=== PATIENT | male | born 1990 | race Caucasian/White ===

== ENCOUNTER 2021-05-17 15:39 | Emergency (ER) | payer OTHER ==
[~2021-05-17] VITALS: Ht 175.3 cm; Wt 59.0 kg
--- NOTE | 2021-05-17 16:21 | NUR ---
BIB [employer] FOR MEDICAL CLEARANCE TO [employer]AILS. C/O NAUSEA, VOMITING, BODY PAIN S/P FENTANYL WITHDRAWAL. LAST FENTANYL USE MONDAY. AWAKE, LETHARGIC, NOT SPEAKING, BUT FOLLOW COMMANDS. ON MONITOR. HR 136. WILL CONTINUE TO MONITOR.
--- NOTE | 2021-05-17 16:29 | NUR ---
URINE COLLECTED AND SENT TO LAB
--- NOTE | 2021-05-17 16:30 | NUR ---
ADDENDUM: IV NS 0.9% 1000ML, RAC 20G, START TIME 1829 END TIME 1929.
[2021-05-17] MEDS ORDERED: CLONIDINE HCL 0.2MG/24H PTWK 1 EA PATCH TD SCH (17:00)
[2021-05-17] MEDS ORDERED: ONDANSETRON HCL/PF 4 MG/2 ML VIAL IVP ONE (18:30)
[2021-05-17] MEDS ORDERED: KETOROLAC TROMETHAMINE INJ 30 MG/ML VIAL IV ONE (18:30)
[2021-05-17] MEDS ORDERED: IV NS 0.9% 1,000 ML BAG IV ONE (18:30)
[2021-05-17] MEDS ORDERED: KETOROLAC TROMETHAMINE INJ 30 MG/ML VIAL ONE (18:54)
[2021-05-17] MEDS ORDERED: ONDANSETRON HCL/PF 4 MG/2 ML VIAL ONE (18:54)
[2021-05-17] MEDS ORDERED: NALO4SPR NS (19:48)
--- NOTE | 2021-05-17 19:59 | NUR ---
Patient discharged to home in stable condition. Written and verbal after care instructions given. Patient verbalizes understanding of instruction.
[2021-05-17 20:00] VITALS: BP 132/70
== END 2021-05-17 20:38 ==
LOC: ER 15:43
DX: Z02.89 Encounter for other administrative examinations (principal); F11.23 Opioid dependence with withdrawal; R11.2 Nausea with vomiting, unspecified; R94.31 Abnormal electrocardiogram [ECG] [EKG]
CPT/HCPCS: 93005; 96361; 96374; 96375; 99284; J1885; J2405; J7030

== ENCOUNTER 2022-01-06 09:36 | Emergency (ER) | payer OTHER ==
[~2022-01-06] VITALS: Ht 170.2 cm; Wt 63.5 kg
[~2022-01-06 09:36] MED LIST: NALO4SPR NS
[2022-01-06 09:47] VITALS: BP 144/86
[2022-01-06] MEDS ORDERED: NALO1DIS2 IM (10:10)
--- NOTE | 2022-01-06 10:16 | NUR ---
Patient discharged in custody of [employer] officers Ezio and Juan in stable condition. Written and verbal after care instructions given.
== END 2022-01-06 10:16 | disposition home or self-care (01) ==
LOC: ER 09:39
DX: F11.10 Opioid abuse, uncomplicated; Z79.899 Other long term (current) drug therapy